=== PATIENT | female | born 1940 | race Caucasian/White ===

== ENCOUNTER 2018-11-09 11:14 | Emergency (ER) | payer MEDICARE, BC, SELFPAY ==
[2018-11-09 11:25] VITALS: BP 158/79; PULSE 67; RESP 21; TEMP 36.5; O2SAT 100
--- NOTE | 2018-11-09 11:27 | PC.NURSE ---
rash onset 2 weeks ago, worsening, had zyrtec and wine last night, also used calamine lotion, still has severe itching, no respiratory distress. generalized rash, chest,abd,back, all extremities, none face and scalp.
[2018-11-09] MEDS: diphenhydrAMINE 25 MG TABLET 50 MG PO (12:02)
[2018-11-09] MEDS: predniSONE 20 MG TABLET 40 MG PO (12:02)
--- NOTE | 2018-11-09 12:06 | ED_ITS ---
HPI - Allergic Reaction General Chief complaint: Skin/Abscess/Foreign Body Stated complaint: Excessive Itching Time Seen by Provider: 11/09/18 11:15 Source: patient Mode of arrival: ambulatory Limitations: no limitations History of Present Illness HPI narrative: 78-year-old female nonsmoker with benign medical history presents with a chief complaint of excessive itching and urticarial type rash for the past 2 weeks. She is visiting from [facility] on her boat and intends to be here for the duration some. She denies any trouble with tongue lip or throat swelling. She has no difficulty swallowing. She denies no wheezing, cough or shortness of breath. She denies any nausea, vomiting or diarrhea. She states she denies any known allergens but has no new medications, pets, lotions, soaps or clothing. She does states she has been eating fair amount of shellfish while here but this is not new for her. MD complaint: allergic reaction and hives Onset (ago): minute(s) Symptoms: rash and itching Treatment prior to arrival: none Previous Allergic Reaction History: none Related Data Home Medications Medication Instructions Recorded Confirmed apixaban [Eliquis] 5 mg PO BID 11/09/18 11/09/18 dronedarone [Multaq] 400 mg PO BID 11/09/18 11/09/18 levothyroxine [Synthroid] 112 mcg PO DAILY 11/09/18 11/09/18 omeprazole 20 mg PO BID 11/09/18 sertraline 50 mg PO DAILY 11/09/18 11/09/18 Previous Rx's Medication Instructions Recorded prednisone See Rx Instructions .ROUTE 11/09/18 .COMPLEX #30 tab Allergies Allergy/AdvReac Type Severity Reaction Status Date / Time hydromorphone [From Dilaudid] Allergy Verified 11/09/18 11:26 pentazocine [From Talwin] Allergy Verified 11/09/18 11:26 Review of Systems Constitutional Denies chills, Denies fever(s), Denies lethargy and Denies weakness Eyes Denies change in vision, Denies eye discharge, Denies irritation and Denies loss of vision ENT Ears, Nose, Mouth, and Throat: Denies change in voice, Denies neck pain and Denies sore throat Cardiovascular Denies chest pain, Denies irregular heart rhythm, Denies lightheadedness, Denies palpitations, Denies dyspnea, Denies dyspnea on exertion and Denies orthopnea Respiratory Denies cough, Denies dyspnea, Denies dyspnea on exertion and Denies wheezing Gastrointestinal Gastrointestinal: Denies abdominal pain, Denies change in bowel habits, Denies diarrhea, Denies nausea and Denies vomiting Genitourinary Denies hematuria, Denies flank pain, Denies urinary incontinence and Denies urinary urgency Musculoskeletal Denies neck pain Integumentary/Breasts Reports pruritus, Denies erythema, Reports rash and Denies wounds Neurologic Denies confusion, Denies loss of vision and Denies weakness Psychiatric Denies anxiety, Denies confusion, Denies depression, Denies homicidal ideation and Denies suicidal ideation Endocrine Denies palpitations Hematologic/Lymphatic Denies easy bruising Allergic/Immunologic Denies wheezing PFSH Social History Smoking Status: Former smoker Social History Smoking Status: Former smoker Exam Narrative Exam Narrative: GENERAL: 78-year-old female appears younger than stated age in in no obvious distress alert and oriented x3 with a GCS of 15 HEAD: Atraumatic. Normocephalic. No temporal or scalp tenderness. EYES: Pupils equal round and reactive. Extraocular motions intact. No scleral icterus. No injection or drainage. ENT: No swelling of tongue lip or throat Nose without bleeding, purulent drainage or septal hematoma. Throat without erythema, tonsillar hypertrophy or exudate. Uvula midline. Airway patent. NECK: Trachea midline. No JVD or lymphadenopathy. Supple, nontender, no meningeal signs. CARDIOVASCULAR: Regular rate and rhythm without murmurs, gallops, or rubs. RESPIRATORY: Clear to auscultation. Breath sounds equal bilaterally. No wheezes, rales, or rhonchi. GASTROINTESTINAL: Abdomen soft, non-tender, nondistended. No hepato- splenomegaly, or palpable masses. No guarding. EXTREMITIES: No clubbing, cyanosis, or edema. No joint tenderness, effusion, or edema noted. BACK: Nontender without deformity or crepitance. No flank tenderness. NEURO: AOx3. SKIN: Widespread erythematous urticarial, para take rash with evidence of calamine lotion Initial Vital Signs Initial Vital Signs: Vital Signs Temperature 97.7 F 11/09/18 11:25 Pulse Rate 67 11/09/18 11:25 Respiratory Rate 21 11/09/18 11:25 Blood Pressure 158/79 H 11/09/18 11:25 Pulse Oximetry 100 11/09/18 11:25 Course Orders Ordered: Discontinued Medications Diphenhydramine HCl (Benadryl) 50 mg PO NOW ONE Stop: 11/09/18 11:47 Last Admin: 11/09/18 12:02 Dose: 50 mg Prednisone (Deltasone) 40 mg PO NOW ONE Stop: 11/09/18 11:47 Last Admin: 11/09/18 12:02 Dose: 40 mg Ranitidine HCl (Zantac) 300 mg PO NOW ONE Stop: 11/09/18 11:47 Last Admin: 11/09/18 12:02 Dose: 300 mg Vital Signs - 8 hr 11/09/18 11:25 Temperature 97.7 F Pulse Rate 67 Respiratory Rate 21 Blood Pressure 158/79 H Pulse Oximetry 100 MDM - Allergic Reaction MDM Narrative Medical decision making narrative: Unclear cause of supposed allergic reaction. No airway or oral compromise. Present for the past 2 weeks. No obvious cause such as medication, food or exposure to any soaps or motion. No systemic findings such as fever chills nor nausea, vomiting or abdominal pain. Patient feels completely normal and at baseline otherwise. We did discuss the utility of lab work and in the absence of any other symptoms that it is exceedingly unlikely to provide any significantly helpful information. Patient given return precautions and has had questions answered to apparent satisfaction Discharge Plan Departure Patient Disposition: Home Clinical Impression: Urticaria Allergic reaction Qualifiers: Encounter type: initial encounter Qualified Code(s): T78.40XA - Allergy, unspecified, initial encounter Discharge Date/Time: 11/09/18 12:26 Interventions: ED Discharge Assessment Last Done: 11/09/18 12:25 Instructions: DI for General Allergic Reactions Activity Restrictions/Additional Instructions: *You have been diagnosed with [allergic reaction with urticaria] *What to do: *Take medications as directed: [id number] antihistamine such as Benadryl or Zyrtec are effective. Histamine type 2 blockers such as Pepcid or Zantac are part of the cocktail, please take as directed on the packaging *Follow up with your primary care provider in 2-3 days, call for an appointment. Let them know you were seen in the Emergency Department and that we ask that you be seen in follow up *Return to ER if you should have any new, worsening or concerning symptoms, such as [difficulty with breathing or swelling of tongue, lips or throat, or any other bothersome symptoms] Prescriptions: New prednisone 10 mg tablet See Rx Instructions .ROUTE .COMPLEX Qty: 30 RF: 0 No Action omeprazole 20 mg capsule,delayed release(DR/EC) 20 mg PO BID RF: 0 sertraline 50 mg tablet 50 mg PO DAILY RF: 0 levothyroxine [Synthroid] 112 mcg tablet 112 mcg PO DAILY RF: 0 Multaq 400 mg tablet 400 mg PO BID RF: 0 Eliquis 5 mg tablet 5 mg PO BID RF: 0
== END 2018-11-09 12:26 | disposition home or self-care (01) ==
PROVIDERS: Emergency Provider Emergency Medicine
DX: L50.9 Urticaria, unspecified (principal); T78.40XA Allergy, unspecified, initial encounter
CPT/HCPCS: 99282; 99283